=== PATIENT | female | born 1945 ===

== ENCOUNTER 2023-03-19 05:35 | Day surgery (SDC) | payer OTHER ==
[2023-03-15 10:27] LABS: PH,URINE 6.5 (5.0-8.0); URINE APPEARANCE Clear; URINE BILIRRUBIN Negative (NEGATIVE); URINE BLOOD Negative; URINE COLOR Yellow; URINE GLUCOSE Negative (NEGATIVE); URINE LEUKOCYTE Negative; URINE NITRATE Negative; URINE PROTEIN Negative (NEGATIVE); URINE UROBILINOGEN 0.2 E.U./dl
[2023-03-15 10:31] LABS: URINE BACTERIA 4.8 uL (0.0-1933); URINE EPITHELIAL CELLS 1.7 uL (0.0-38.8); URINE WBC 2.9 uL (0.0-23.2)
[2023-03-15 10:34] LABS: HEMATOCRIT 44.5 % (36.0-45.00); HEMOGLOBIN 14.5 g/dL (12.0-15.00); MEAN CELL VOLUME 90.8 fL (80.00-100.00); MEAN CORPUSCULAR HEMOGLOBIN 29.6 pg (27.00-32.0); MEAN CORPUSCULAR HGB CONC 32.6 g/dl (32.0-36.0); PLATELET COUNT 190 K/uL (150-450); RED BLOOD COUNT 4.91 M/uL (4.00-6.00); RED CELL DISTRIBUTION WIDTH 13.8 % (11.5-14.5)
[2023-03-15 10:55] LABS: INR 1.01; PARTIAL THROMBOPLASTIN TIME 27.3 SECONDS (22.0-34.0); PROTHROMBIN TIME 10.6 SECONDS (9.0-11.5)
[2023-03-15 11:07] LABS: ALBUMIN 3.6 gm/dL (3.4-5.0); BILIRUBIN TOTAL 0.35 mg/dL (0.3-1.2); CALCIUM 9.9 mg/dL (8.5-10.1); CREATININE SERUM 0.69 mg/dL (0.55-1.02); GFR 82.07; POTASSIUM 4.66 mEq/L (3.5-5.1); TOTAL PROTEIN 7.6 gm/dL (6.4-8.2)
[~2023-03-19] VITALS: Ht 152.4 cm; Wt 65.8 kg
[~2023-03-19 05:35] MED LIST: LISINOP PO; TOPROL XL50 M1 PO; [UNRECOGNIZED DRUG - OTHER] PO
== END 2023-03-19 17:55 | disposition home or self-care (01) ==
LOC: CIR.AMB 05:35
PROVIDERS: ATTEND Obstetrics & Gynecology
DX: N84.0 Polyp of corpus uteri (principal); N95.0 Postmenopausal bleeding; Z20.822 Contact with and (suspected) exposure to COVID-19; Z91.013 Allergy to seafood; I10 Essential (primary) hypertension